=== PATIENT | female | born 1955 | race Caucasian/White ===

== ENCOUNTER 2018-11-05 05:39 | Inpatient (IN) | payer OTHER ==
[~2018-11-05] VITALS: Ht 152.4 cm; Wt 54.4 kg
[2018-11-05 06:54] LABS: PLATELET COUNT 195 x10^3mcL (130-400)
[2018-11-05 07:13] LABS: CALCIUM 9.8 mg/dL (8.5-10.1); CARBON DIOXIDE 34.4 mmol/L (21-32); CREATININE SERUM 1.1 mg/dL (0.6-1.0); POTASSIUM SERUM 4.9 mmol/L (3.5-5.1)
[2018-11-05 07:18] LABS: BILIRUBIN TOTAL 0.28 mg/dL (0.20-1.00); TOTAL PROTEIN, SERUM 7.8 g/dL (6.4-8.2)
[2018-11-05 07:20] LABS: ALBUMIN 2.9 g/dL (3.4-5.0)
[2018-11-05 07:24] LABS: RED CELL DISTRIBUTION WIDTH 14.8 % (11.5-14.5)
[2018-11-05 09:56] LABS: BAND NEUTROPHIL 1 % (0-10); SEGMENTED NEUTROPHILS 88 % (37-75)
[2018-11-05 09:57] LABS: MONOCYTE 5 % (0-7); PLATELET MORPHOLOGY PLATELETS NORMAL; rbc morphology (normal/abnorm) NORMAL (NORMAL)
[2018-11-05 11:13] VITALS: BP 118/85
[2018-11-05 11:23] VITALS: Ht 152.4 cm; Wt 54.4 kg
== END 2018-11-05 12:47 | disposition expired | DRG 871 ==
LOC: ED 05:39 → MU 10:19 → EDBEDREQ 10:20 → MU 10:55
PROVIDERS: Emergency Medicine
DX: A41.9 Sepsis, unspecified organism (principal); R65.21 Severe sepsis with septic shock; J96.01 Acute respiratory failure with hypoxia; J18.9 Pneumonia, unspecified organism; G93.41 Metabolic encephalopathy; C78.02 Secondary malignant neoplasm of left lung; C78.01 Secondary malignant neoplasm of right lung; C50.919 Malignant neoplasm of unspecified site of unspecified female breast; Z66 Do not resuscitate; Z51.5 Encounter for palliative care; Z68.21 Body mass index [BMI] 21.0-21.9, adult
CPT/HCPCS: 83880; J0456; J2060; J2270; J3370; J3490; J7030; J7050